=== PATIENT | female | born 1965 | race Caucasian/White ===

== ENCOUNTER → 2017-04-30 | Outpatient (CLI) | payer OTHER ==
--- NOTE | 2017-04-30 15:47 | REPMRS ---
Patient History The patient states she had a clinical breast exam in April 2017. Patient is postmenopausal. No known family history of cancer. Benign radio exam breast specimen of the left breast, March 15, 2014. Benign localization of breast nodule of the left breast, March 15, 2014. Digital Mammo Screening Bilat: April 30, 2017 - Exam #: [id number] Bilateral CC and MLO view(s) were taken. Technologist: An Hart, Technologist Prior study comparison: January 05, 2014, left breast digital mammo diagnostic unilateral performed at [facility]. December 22, 2013, bilateral digital mammo screening bilat performed at [facility]. FINDINGS: There are scattered fibroglandular densities. There has been no change in the appearance of the mammogram from the prior studies. There is a mild amount of scattered fibroglandular density which is fairly symmetric. There is no interval development of dominant mass, architectural distortion, or clustered microcalcification suggestive of malignancy. ASSESSMENT: BI-RADS/ACR category 1 mammogram. Negative. Recommendation Routine screening mammogram in 1 year (for women over age 40). This mammogram was interpreted with the aid of an FDA-approved computer-aided dectection system. Electronically Signed By: Dexter Esparza MD 04/30/17 [id number]
== END ==
LOC: M RAD 14:43
PROVIDERS: ATTEND Obstetrics & Gynecology
DX: Z12.31 Encounter for screening mammogram for malignant neoplasm of breast (principal); Z78.0 Asymptomatic menopausal state

== ENCOUNTER → 2017-05-02 | Outpatient (CLI) | payer OTHER ==
--- NOTE | 2017-05-06 09:33 | DEXA ---
AP SPINE L1 - L4 1.084 -0.9 -0.2 LT FEMUR TOTAL 0.804 -1.6 -1.0 RT FEMUR TOTAL 0.881 -1.0 -0.4 TOTAL BODY TOTAL OTHER DUAL FEMUR FRAX* ASSESSMENT Risk factors: Alcohol abuse. 10 year probability of fracture Major osteoporotic fracture 10.0 % Hip fracture 2.2 % COMMENTS: Normal bone densitometry of the spine. There is low bone density of the hips. FOLLOW-UP: Recommendation for the next bone density exam: 2 years. RAMONAD
== END ==
LOC: M WHC 14:22
PROVIDERS: ATTEND Obstetrics & Gynecology
DX: M81.0 Age-related osteoporosis without current pathological fracture (principal)

== ENCOUNTER → 2017-05-07 | Outpatient (REF) | payer OTHER ==
[2017-05-07 19:46] LABS: ESTRADIOL < 19.0 PG/ML; FOLLICLE STIMULATING HORMONE 112.9 mIU/mL; LUTEINIZING HORMONE 42.2 mIU/mL
[2017-05-07 19:47] LABS: PROGESTERONE < 0.2 NG/ML
== END ==
LOC: M LAB REF 16:25
PROVIDERS: ATTEND Obstetrics & Gynecology
DX: N95.9 Unspecified menopausal and perimenopausal disorder (principal)

== ENCOUNTER 2017-11-26 20:39 | Emergency (ER) | payer BC, OTHER ==
[2017-11-26] MEDS ORDERED: MORPHINE 10 MG/ML 1ML VIAL (J2270) IM (21:45)
[2017-11-26] MEDS: MORPHINE 10 MG/ML 1ML VIAL (J2270) IV (21:59)
[2017-11-26] MEDS: KETOROLAC 30 MG/ML VIAL (J1885) IV (23:46)
== END 2017-11-27 00:46 | disposition home or self-care (01) ==
LOC: M ED 11-27 00:46
DX: S32.048A Other fracture of fourth lumbar vertebra, initial encounter for closed fracture (principal); V86.52XA Driver of snowmobile injured in nontraffic accident, initial encounter; Y92.830 Public park as the place of occurrence of the external cause; Y93.29 Activity, other involving ice and snow; Z88.0 Allergy status to penicillin
CPT/HCPCS: J1885

== ENCOUNTER → 2018-05-01 | Outpatient (CLI) | payer BC | LOC: M RAD 14:58 | DX: Z12.31 Encounter for screening mammogram for malignant neoplasm of breast (principal) | CPT/HCPCS: 77067 ==

== ENCOUNTER → 2020-06-22 | Outpatient (CLI) | payer BC ==
[~2020-06-22] MED LIST: TRAM50TA2 PO; TYLE1TAB5 PO
--- NOTE | 2020-07-12 13:40 | REP ---
LEFT KNEE RADIOGRAPH SERIES: 06/22/20 CLINICAL: Left knee pain without trauma. TECHNIQUE: AP, lateral, bilateral oblique and sunrise views of the left knee. FINDINGS: Osseous structures, joint spaces, and surrounding soft issues appear normal. No acute fracture or dislocation. No overt arthritic changes. No effusion. IMPRESSION: Normal left knee radiograph series. MTDD
== END ==
LOC: M WUC 15:52
PROVIDERS: ATTEND Nurse Practitioner Family
DX: M25.562 Pain in left knee (principal)

== ENCOUNTER → 2022-05-17 | Outpatient (CLI) | payer BC | LOC: M WUC 08:38 | PROVIDERS: ATTEND Physician Assistant | DX: R07.82 Intercostal pain (principal) ==

== ENCOUNTER → 2025-01-05 | Outpatient (CLI) | payer OTHER | LOC: M WHC 16:43 | PROVIDERS: ATTEND Family Medicine | DX: Z12.31 Encounter for screening mammogram for malignant neoplasm of breast (principal); Z13.820 Encounter for screening for osteoporosis ==

== ENCOUNTER → 2025-01-06 | Outpatient (REF) | payer OTHER ==
[2025-01-06 13:49] LABS: HEMATOCRIT 42.1 % (36.0-47.0); HEMOGLOBIN 14.1 g/dl (12.0-15.5); MEAN CORPUSCULAR HEMOGLOBIN 32.3 pg (27.0-33.0); MEAN CORPUSCULAR HGB CONC 33.5 g/dl (32.0-36.5); MEAN CORPUSCULAR VOLUME 96.6 fl (80.0-96.0); PLATELET COUNT, AUTOMATED 274 10^3/uL (150-450); RED BLOOD COUNT 4.36 10^6/uL (4.00-5.40); WHITE BLOOD COUNT 3.8 10^3/uL (4.0-10.0)
[2025-01-06 14:02] LABS: HEMOGLOBIN A1c 4.4 % (4.0-6.0)
[2025-01-06 14:23] LABS: C REACTIVE PROTEIN QUANTITATIV < 0.50 MG/DL (<1.0)
[2025-01-06 14:25] LABS: ALBUMIN 3.9 G/DL (3.2-5.2); ALKALINE PHOSPHATASE 85 U/L (35-104); ALT/SGPT 22 U/L (7.0-40); AST/SGOT 28 U/L (<34); BILIRUBIN,TOTAL 0.5 MG/DL (0.3-1.2); BLOOD UREA NITROGEN 16 MG/DL (9-23); CALCIUM LEVEL 9.7 MG/DL (8.3-10.6); CARBON DIOXIDE LEVEL 29 MMOL/L (20-31); CHLORIDE LEVEL 104 MMOL/L (98-107); CHOLESTEROL LEVEL 280 MG/DL (<200); CHOLESTEROL RISK RATIO 2.98 (<5); CREATININE FOR GFR 0.91 MG/DL (0.55-1.30); GLOMERULAR FILTRATION RATE > 60.0 (>45); GLUCOSE, FASTING 87 MG/DL (74-106); HDL CHOLESTEROL 93.9 MG/DL (>40); LDL CHOLESTEROL 168.3 MG/DL (<100); NON-HDL-C 186.1 MG/DL; POTASSIUM SERUM 4.2 MMOL/L (3.5-5.1); RHEUMATOID FACTOR QUANT < 3.5 IU/ML (<14); SODIUM LEVEL 142 MMOL/L (136-145); TOTAL PROTEIN 7.1 G/DL (5.7-8.2); TRIGLYCERIDES LEVEL 89 MG/DL (<150)
[2025-01-06 14:26] LABS: FREE T4 1.08 NG/DL (0.89-1.76); THYROID STIMULATING HORMONE 2.027 uIU/ML (0.55-4.78)
== END ==
LOC: M SFHCADAM 07:20
PROVIDERS: ATTEND Family Medicine
DX: L08.9 Local infection of the skin and subcutaneous tissue, unspecified (principal); E78.5 Hyperlipidemia, unspecified; M25.60 Stiffness of unspecified joint, not elsewhere classified; Z13.1 Encounter for screening for diabetes mellitus

== ENCOUNTER 2025-08-18 06:58 | Day surgery (SDC) | payer OTHER ==
[~2025-08-18] VITALS: Ht 152.4 cm; Wt 58.4 kg
[~2025-08-18 06:58] MED LIST changes: +LIDOCAINE 2% 100 MG/5 ML SDV (FOR ANES.) As Ordered ONE
[2025-08-18] MEDS ORDERED: LABETALOL 100 MG/20 ML VIAL As Ordered ONE (07:44)
[2025-08-18 07:56] VITALS: TEMP 96.7
[2025-08-18 08:18] VITALS: BP 129/72; O2SAT 98
== END 2025-08-18 08:19 | disposition home or self-care (01) ==
LOC: M OPP 06:58
PROVIDERS: ATTEND Surgery
DX: Z12.11 Encounter for screening for malignant neoplasm of colon (principal); D12.5 Benign neoplasm of sigmoid colon; D12.3 Benign neoplasm of transverse colon; Z88.0 Allergy status to penicillin
CPT/HCPCS: 45380; 88305; J1920